=== PATIENT | female | born 2005 | race Two or more races ===

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

== ENCOUNTER 2023-05-06 15:31 | Emergency (ER) | payer OTHER ==
[~2023-05-06] VITALS: Ht 170.2 cm; Wt 72.7 kg
[~2023-05-06 15:31] MED LIST changes: +ACET-3385 PO; +CEPH-558 PO; +IBUP-1492 PO
[2023-05-06 15:58] VITALS: BP 124/94; PULSE 114; RESP 18; TEMP 99.4
[2023-05-06 16:53] LABS: INFLUENZA A-RTPCR,COMBO NEGATIVE FOR FLU A (NEGATIVE); INFLUENZA B-RTPCR,COMBO NEGATIVE FOR FLU B (NEGATIVE); SARS COVID19 RTPCR, COMBO NEGATIVE (NEGATIVE)
[2023-05-06 17:17] LABS: COVID AG,FIA SOURCE NASAL SWAB
[2023-05-06 17:35] LABS: INFLUENZA TYPE A NEGATIVE FOR TYPE A (NEGATIVE); INFLUENZA TYPE B NEGATIVE FOR TYPE B (NEGATIVE)
[2023-05-06 17:38] LABS: SARS-COV2 (COVID) ANTIGEN,FIA Negative (Negative)
[2023-05-06 17:45] LABS: RESPIRATORY SYNCYTIAL VRS-PCR POSITIVE (NEGATIVE)
[2023-05-06] MEDS ORDERED: BENZ-227 PO (18:25)
== END 2023-05-06 18:54 | disposition home or self-care (01) ==
LOC: EMS 15:34
DX: J12.1 Respiratory syncytial virus pneumonia (principal); Z20.822 Contact with and (suspected) exposure to COVID-19
CPT/HCPCS: 99283; 0241U; 87804; 87426